=== PATIENT | male | born 1975 | race American Indian/Alaskan Native ===

== ENCOUNTER 2017-03-27 18:44 | Emergency (ER) | payer OTHER ==
--- NOTE | 2017-03-27 20:55 | Emergency Department Report ---
Eye Injury/Foreign Body - HPI Duration: 4 Days Eye Location: Right Severity: Severe Tetanus Status: Unknown Eye Symptoms: Eye Pain: Yes, Blurred Vision: Yes, Eye Redness: Yes, Recalls Injury: No Other History: Patient states that gradually for the last 4-5 days he has had worsening vision in his right eye. Patient states that now he can only see hints of light. Pt states that he can not see fingers, movement from the right eye. Patient denies any trauma. Patient went to pharmacy and was given over- the-counter Clear Eyes drops ED Review of Systems ROS: Stated complaint: RT EYE NO VISION Other details as noted in HPI Comment: All other systems reviewed and negative ED Past Medical Hx - Past Medical History Previous Medical History?: No - Surgical History Past Surgical History?: No - Social History Smoking Status: Never Smoker Substance Use Type: None Eye Injury Exam - Exam General: Vital signs noted. No distress. Alert and acting appropriately. - Visual Acuity Right Vision Acuity Degree: patient unable to see the chart on the right Eye Exam: Right Injection (pressure using a Jamil-Pen was 14), Right Chemosis, Right Abnormal Pupil (decreased pupillary response on the right), Both EOMI, Neither Eye Foreign Body, Neither Lid Foreign Body, Neither Mucous Discharge, Neither Purulent Discharge, Neither Photophobia Exam: General exam patient is in no distress HEENT normal mouth ears and nose. Lung exam: Lungs clear to auscultation bilaterally CV: S1-S2 no murmurs gallops or rubs ED Course Vital Signs 03/27/17 18:45 Temperature 99.4 F Pulse Rate 80 Respiratory 16 Rate Blood Pressure 115/83 O2 Sat by Pulse 98 Oximetry ED Medical Decision Making - Lab Data Result diagrams: 03/27/17 20:57 03/27/17 20:57 Lab Results 03/27/17 03/27/17 03/27/17 Range/Units 20:57 20:57 20:57 WBC 8.2 (4.5-11.0) K/mm3 RBC 5.43 H (3.65-5.03) M/mm3 Hgb 14.0 (11.8-15.2) gm/dl Hct 42.9 (35.5-45.6) % MCV 79 L (84-94) fl MCH 26 L (28-32) pg MCHC 33 (32-34) % RDW 15.4 H (13.2-15.2) % Plt Count 192 (140-440) K/mm3 Lymph % (Auto) 35.0 (13.4-35.0) % Irion % (Auto) 6.8 (0.0-7.3) % Eos % (Auto) 1.0 (0.0-4.3) % Baso % (Auto) 0.6 (0.0-1.8) % Lymph # 2.9 (1.2-5.4) K/mm3 Irion # 0.6 (0.0-0.8) K/mm3 Eos # 0.1 (0.0-0.4) K/mm3 Baso # 0.0 (0.0-0.1) K/mm3 Seg Neutrophils % 56.6 (40.0-70.0) % Seg Neutrophils # 4.6 (1.8-7.7) K/mm3 PT 13.3 (12.2-14.9) Sec. INR 0.96 (0.87-1.13) Sodium 144 (137-145) mmol/L Potassium 4.6 (3.6-5.0) mmol/L Chloride 103.5 (98-107) mmol/L Carbon Dioxide 26 (22-30) mmol/L Anion Gap 19 mmol/L BUN 15 (9-20) mg/dL Creatinine 0.9 (0.8-1.5) mg/dL Estimated GFR > 60 ml/min BUN/Creatinine Ratio 17 % Glucose 104 H (75-100) mg/dL Calcium 9.3 (8.4-10.2) mg/dL - Radiology Data Radiology results: report reviewed, image reviewed No acute process - Medical Decision Making Because the patient could not see even shadows from the right eye [facility] was called. Did speak with Dr. Loredo at midnight. He states because the holiday A be best to see the patient tonight instead of waiting several days for clinic appointment. Patient will be transferred to [facility] ED. Patient returns for an stable condition. Critical care attestation.: If time is entered above; I have spent that time in minutes in the direct care of this critically ill patient, excluding procedure time. ED Disposition Clinical Impression: Vision loss of right eye Disposition: [id number] ANOTHER TYPE HLTHCARE Is pt being admited?: No Does the pt Need Aspirin: No Condition: Poor
[2017-03-27 21:16] LABS: Basophils % (Auto) 0.6 % (0.0-1.8); Eosinophils # (Auto) 0.1 K/mm3 (0.0-0.4); Hematocrit 42.9 % (35.5-45.6); Lymphocytes # (Auto) 2.9 K/mm3 (1.2-5.4); Mean Corpuscular HGB Conc 33 % (32-34); Mean Corpuscular Volume 79 fl (84-94); Monocytes # (Auto) 0.6 K/mm3 (0.0-0.8); Monocytes % (Auto) 6.8 % (0.0-7.3); Platelet Count 192 K/mm3 (140-440); Red Blood Count 5.43 M/mm3 (3.65-5.03); Red Cell Distribution Width 15.4 % (13.2-15.2)
[2017-03-27 21:18] LABS: Mean Corpuscular Hemoglobin 26 pg (28-32)
[2017-03-27 21:26] LABS: INR 0.96 (0.87-1.13)
[2017-03-27 21:27] LABS: BUN/Creatinine Ratio 17; Blood Urea Nitrogen 15 mg/dL (9-20); Calcium 9.3 mg/dL (8.4-10.2); Hemolysis Index 16
--- NOTE | 2017-03-27 23:13 | Cat Scan Report ---
FINAL REPORT PROCEDURE: CT ORBIT/EAR/FOSSA W CON TECHNIQUE: Computerized axial tomography of the orbits was performed following the IV injection of iodinated nonionic contrast. HISTORY: no vision right eye COMPARISON: No prior studies are available for comparison. FINDINGS: The globes bilaterally appear intact. The lenses are not displaced. The orbital musculature and optic nerves show no abnormalities. The lacrimal glands appear symmetric. There is a small bubble of gas seen superior anterior aspect of the globe of the right orbit which may be related to recent physical exam. Correlation with exam schedule recommended. No fractures are identified There is nodular mucosal thickening in the right and left maxillary sinuses. There is mild patchy mucosal disease in a few of the ethmoid air cells and minimal mucosal thickening of the frontal sinuses as well as the sphenoid sinuses. No air-fluid levels are identified. IMPRESSION: The globes and orbits are symmetric and unremarkable. Mild paranasal sinus disease as described.
[2017-03-27] MEDS ORDERED: TETRACAINE 0.5% OU ONE (23:16)
[2017-03-28 02:37] VITALS: BP 116/68
== END 2017-03-28 02:22 | disposition other institution (70) ==
LOC: ED 18:44
DX: H54.61 Unqualified visual loss, right eye, normal vision left eye (principal)
CPT/HCPCS: 36415; 70481; 80048; 85025; 85610; 99285; Q9967